=== PATIENT | female | born 1990 | race African-American/Black ===

== ENCOUNTER 2020-09-13 01:54 | Emergency (ER) | payer OTHER ==
[~2020-09-13] VITALS: Ht 162.6 cm; Wt 79.0 kg
[2020-09-13 02:53] LABS: BASOPHILS % 1.3 % (0.0-2.0); EOSINOPHILS % 2.9 % (0.0-5.0); HEMATOCRIT. 41.5 % (36.0-48.0); HEMOGLOBIN. 14.1 g/dL (12.0-16.0); LYMPHOCYTES % 28.5 % (20.0-50.0); MEAN CORPUSCULAR HEMOGLOBIN 26.2 pg (28.0-32.0); MEAN CORPUSCULAR VOLUME 77.2 fL (81.0-99.0); MEAN PLATELET VOLUME 9.9 fl (7.4-10.4); NEUTROPHILS % 58.3 % (40.0-76.0); PLATELET 306 x1000/uL (130-400); RED BLOOD CELL COUNT 5.38 mill/uL (4.2-5.4); RED CELL DISTRIBUTION WIDTH 14.9 % (11.6-14.6)
[2020-09-13 02:57] LABS: CHLORIDE 104 mEq/L (98-107)
[2020-09-13 03:06] LABS: B-HCG QUANTITATIVE < 1 mIU/mL (<3)
[2020-09-13] MEDS ORDERED: NAPROXEN 250MG TABLET PO ONE (04:45)
[2020-09-13 05:00] VITALS: BP 127/75
== END 2020-09-13 05:24 | disposition home or self-care (01) ==
LOC: ER 01:54
DX: N93.9 Abnormal uterine and vaginal bleeding, unspecified (principal); J45.909 Unspecified asthma, uncomplicated
CPT/HCPCS: 36415; 76830; 76856; 80053; 81025; 84702; 85025; 86850; 86900; 99284

== ENCOUNTER 2021-06-27 14:21 | Emergency (ER) | payer OTHER ==
[~2021-06-27] VITALS: Ht 162.6 cm; Wt 79.0 kg
[2021-06-27] MEDS ORDERED: KETOROLAC 30MG/ML VIAL IV STA (22:17)
[2021-06-27 22:43] LABS: EOSINOPHILS % 4.3 % (0.0-5.0); HEMATOCRIT. 32.9 % (36.0-48.0); HEMOGLOBIN. 11.4 g/dL (12.0-16.0); LYMPHOCYTES % 21.5 % (20.0-50.0); MEAN CORPUSCULAR HEMOGLOBIN 25.1 pg (28.0-32.0); MEAN CORPUSCULAR VOLUME 72.4 fL (81.0-99.0); MEAN PLATELET VOLUME 9.4 fl (7.4-10.4); MONOCYTES % 10.5 % (2.0-8.0); NEUTROPHILS % 62.7 % (40.0-76.0); PLATELET 381 x1000/uL (130-400); RED BLOOD CELL COUNT 4.55 mill/uL (4.2-5.4); RED CELL DISTRIBUTION WIDTH 15.5 % (11.6-14.6)
[2021-06-27 22:45] LABS: CHLORIDE 107 mEq/L (98-107)
[2021-06-27 22:49] LABS: ETHANOL BLOOD < 10 mg/dL
[2021-06-28] MEDS ORDERED: POTASSIUM CHLORIDE INJ 40 MEQ in DEXT 5% WATER 250 ML IV ONE (00:30)
[2021-06-28 02:55] LABS: CLARITY URINE CLEAR (CLEAR); COLOR URINE YELLOW (YELLOW); KETONES URINE TRACE (NEGATIVE); LEUKOCYTE ESTERASE URINE TRACE (NEGATIVE); NITRITE URINE POSITIVE (NEGATIVE); OCCULT BLOOD URINE 1+ (NEGATIVE); PH URINE 5.5 (4.5-8.0); PROTEIN URINE NEGATIVE (NEGATIVE); SPECIFIC GRAVITY URINE 1.023 (1.005-1.030); UROBILINOGEN URINE 0.2 E.U./dL (0.2-1.0)
[2021-06-28 03:09] LABS: *AMPHETAMINES SCREEN URINE NEGATIVE (NEGATIVE); *BARBITURATES SCREEN URINE NEGATIVE (NEGATIVE); *BENZODIAZEPINES SCREEN URINE NEGATIVE (NEGATIVE); *COCAINE SCREEN URINE NEGATIVE (NEGATIVE); METHADONE URINE SCREEN NEGATIVE (NEGATIVE); OPIATES URINE SCREEN NEGATIVE (NEGATIVE); PHENCYCLIDINE URINE SCREEN NEGATIVE (NEGATIVE)
[2021-06-28 03:10] LABS: CANNABINOID URINE SCREEN NEGATIVE (NEGATIVE)
[2021-06-28] MEDS ORDERED: IBUP-2029 MT (05:17)
[2021-06-28 05:40] VITALS: BP 122/89
== END 2021-06-28 05:52 | disposition home or self-care (01) ==
LOC: ER 14:21
DX: R10.11 Right upper quadrant pain (principal); R11.2 Nausea with vomiting, unspecified; J45.909 Unspecified asthma, uncomplicated; F17.290 Nicotine dependence, other tobacco product, uncomplicated; Z20.822 Contact with and (suspected) exposure to COVID-19; Z90.89 Acquired absence of other organs; Z79.899 Other long term (current) drug therapy
CPT/HCPCS: 36415; 74176; 76700; 80053; 80305; 80320; 81003; 81025; 83690; 85025; 87426; 96365; 96375; 99285; 99406; J1885; J3480; J7060; G0480

== ENCOUNTER 2021-09-21 10:25 | Emergency (ER) | payer OTHER ==
[~2021-09-21] VITALS: Ht 162.6 cm; Wt 77.0 kg
[~2021-09-21 10:25] MED LIST: IBUP-2029 MT
[2021-09-21] MEDS ORDERED: ACETAMINOPHEN 325MG TABLET PO STA (12:34)
[2021-09-21] MEDS ORDERED: ONDANSETRON HCL 4MG/2ML INJ IV STA (12:34)
[2021-09-21] MEDS ORDERED: MAGNESIUM/ALUMINUM HYDROXIDE/SIMETHICONE 30ML UDC PO STA (12:34)
[2021-09-21] MEDS ORDERED: SODIUM CHLORIDE 0.9% 1,000 ML IV ONE (12:45)
[2021-09-21 12:58] LABS: BASOPHILS % 0.3 % (0.0-2.0); EOSINOPHILS % 4.8 % (0.0-5.0); HEMATOCRIT. 34.7 % (36.0-48.0); HEMOGLOBIN. 11.3 g/dL (12.0-16.0); LYMPHOCYTES % 26.1 % (20.0-50.0); MEAN CORPUSCULAR HEMOGLOBIN 21.9 pg (28.0-32.0); MEAN CORPUSCULAR VOLUME 67.2 fL (81.0-99.0); MEAN PLATELET VOLUME 9.1 fl (7.4-10.4); MONOCYTES % 8.1 % (2.0-8.0); NEUTROPHILS % 60.7 % (40.0-76.0); PLATELET 401 x1000/uL (130-400); RED BLOOD CELL COUNT 5.17 mill/uL (4.2-5.4); RED CELL DISTRIBUTION WIDTH 17.1 % (11.6-14.6)
[2021-09-21 13:03] LABS: CHLORIDE 107 mEq/L (98-107)
[2021-09-21 13:24] LABS: HCG SCREEN NEGATIVE
[2021-09-21] MEDS ORDERED: ONDA4TAB5 MT (13:29)
[2021-09-21 13:34] LABS: PLATELET ESTIMATE INCREASED
[2021-09-21 14:05] VITALS: BP 106/55
== END 2021-09-21 14:34 | disposition home or self-care (01) ==
LOC: ER 10:25
DX: R19.7 Diarrhea, unspecified (principal); R10.9 Unspecified abdominal pain; J45.909 Unspecified asthma, uncomplicated
CPT/HCPCS: 36415; 80053; 83690; 84703; 85025; 96374; 99283; J2405; J7030

== ENCOUNTER 2023-03-07 10:56 | Emergency (ER) | payer MEDICAID, OTHER ==
[~2023-03-07] VITALS: Ht 162.6 cm; Wt 79.5 kg
[~2023-03-07 10:56] MED LIST changes: +ONDA4TAB5 MT
[2023-03-07] MEDS ORDERED: ONDANSETRON 4MG ODT PO ONE (11:15)
[2023-03-07] MEDS ORDERED: SODIUM CHLORIDE 0.9% 500 ML IV ONE (11:15)
[2023-03-07 11:28] LABS: BASOPHILS % 0.7 % (0.0-2.0); EOSINOPHILS % 4.8 % (0.0-5.0); HEMATOCRIT. 40.7 % (36.0-48.0); HEMOGLOBIN. 13.8 g/dL (12.0-16.0); LYMPHOCYTES % 28.2 % (20.0-50.0); MEAN CORPUSCULAR HEMOGLOBIN 26.4 pg (28.0-32.0); MEAN CORPUSCULAR VOLUME 77.9 fL (81.0-99.0); MEAN PLATELET VOLUME 9.5 fl (7.4-10.4); MONOCYTES % 9.5 % (2.0-8.0); NEUTROPHILS % 56.8 % (40.0-76.0); PLATELET 303 x1000/uL (130-400); RED BLOOD CELL COUNT 5.22 mill/uL (4.2-5.4); RED CELL DISTRIBUTION WIDTH 15.2 % (11.6-14.6)
[2023-03-07 11:38] LABS: HCG SCREEN NEGATIVE
[2023-03-07 11:43] LABS: CHLORIDE 107 mEq/L (98-107)
[2023-03-07 11:54] LABS: CLARITY URINE CLEAR (CLEAR); COLOR URINE YELLOW (YELLOW); KETONES URINE TRACE (NEGATIVE); LEUKOCYTE ESTERASE URINE NEGATIVE (NEGATIVE); NITRITE URINE NEGATIVE (NEGATIVE); OCCULT BLOOD URINE NEGATIVE (NEGATIVE); PH URINE 6.5 (4.5-8.0); PROTEIN URINE NEGATIVE (NEGATIVE); SPECIFIC GRAVITY URINE 1.019 (1.005-1.030)
[2023-03-07] MEDS ORDERED: MAGNESIUM/ALUMINUM HYDROXIDE/SIMETHICONE 30ML UDC PO STA (12:54)
[2023-03-07] MEDS ORDERED: OMEP40CA20 MT (14:02)
[2023-03-07 14:26] VITALS: BP 128/90
[2023-03-07] MEDS ORDERED: ONDANSETRON 4MG ODT PO SCH (14:30)
== END 2023-03-07 14:26 | disposition home or self-care (01) ==
LOC: ER 10:56
DX: R10.33 Periumbilical pain (principal); F12.10 Cannabis abuse, uncomplicated; J45.909 Unspecified asthma, uncomplicated
CPT/HCPCS: 36415; 74176; 80053; 81003; 84703; 85025; 99284; J7040